=== PATIENT | female | born 1970 | race Caucasian/White ===

== ENCOUNTER 2016-09-23 09:48 | Inpatient (IN) | payer BC ==
[~2016-09-23 09:48] MED LIST: ACYCLOVIR400 MG PO; ALLOPURINOL300 MG PO; ATIVAN0.5 MG PO; BACTRIM DS1 TA1 PO; COMPAZINE10 M PO; DECADRON4 MG PO; LAXATIVE PO; LEVOTHYROXINE25 MC3 PO; MAGNESIUM400 MG PO; NORCO 10/325 TA1 TAB PO; PREDNISONE10 MG PO; PRILOSEC20 MG PO; TRETINOIN PO; TYLENOL325 M1 PO; VESANOID10 MG PO; WELLBUTRIN XL300 M1 PO; WELLBUTRIN75 M1 PO; ZOFRAN8 MG PO; [UNRECOGNIZED DRUG - OTHER]; [UNRECOGNIZED DRUG - OTHER] PO
[2016-09-23 10:20] LABS: BASO % 0.3 % (0-2); EOS % 2.1 % (0-7); EOSINOPHIL ABSOLUTE COUNT 0.1 tho/cmm (0.0-0.7); HCT-HEMATOCRIT 41.9 % (34.0-49.0); HGB-HEMOGLOBIN 14.3 gm/dl (12.0-15.5); LYMPH ABSOLUTE COUNT 1.2 tho/cmm (0.8-4.5); MCH (MEAN CORPUSCULAR HGB) 30.8 pg (28.0-32.0); MCHC MEAN CORPUSCULAR HGB CONC 34.1 % (32.0-36.0); MCV (MEAN CELL VOLUME) 90.1 fl (82.0-96.0); MEAN PLATELET VOLUME 9.5 cmc (9.4-12.4); MONO % 8.9 % (0-12); MONOCYTE ABSOLUTE COUNT 0.5 tho/cmm (0.0-1.2); NEUTROPHIL ABSOLUTE COUNT 3.9 tho/cmm (1.6-8.0); NEUTROPHIL-AUTOMATED 3.9 tho/cmm (1.6-8.0); NEUTROPHILS % 67.7 % (40-80); PLATELET COUNT 239 tho/cmm (150-450); RED BLOOD COUNT 4.65 mil/cmm (4.00-5.20); RED CELL DISTRIBUTION WIDTH 13.6 % (12.4-16.4); WHITE BLOOD COUNT 5.8 tho/cmm (4.0-10.0)
[2016-09-23 10:37] LABS: ALB/GLOB RATIO 1.1 (0.8-2.0); ALBUMIN 4.1 g/dl (3.5-5.0); ALKALINE PHOSPHATASE 76 U/L (33-138); ANION GAP 13 mmol/L (0-20); AST/SGOT 25 U/L (10-40); BILIRUBIN,TOTAL 0.5 mg/dl (0-1.5); BLOOD UREA NITROGEN 10 mg/dl (6-24); CALCIUM 9.3 mg/dl (8.5-10.5); CARBON DIOXIDE-VENOUS 25 mmol/L (22-32); CHLORIDE 108 mmol/l (96-110); GLUCOSE 88 mg/dL (70-110); POTASSIUM 4.3 mmol/L (3.7-5.1); SODIUM 142 mmol/L (135-145); eGFR VALUE FOR BLACK >90 mL/Min
[2016-09-23] MEDS ORDERED: PROBIOTIC1 EAC8 PO (10:37)
[2016-09-23] MEDS ORDERED: FIBER PO (10:39)
[2016-09-23] MEDS ORDERED: MULTI VITAMIN1 EAC2 PO (10:39)
[2016-09-23 10:40] LABS: ALT/SGPT 34 U/L (12-78)
[2016-09-23] MEDS ORDERED: DOCUSATE SODIU250 M1 PO (10:40)
[2016-09-24 05:41] LABS: BASO % 0.1 % (0-2); EOS % 0.2 % (0-7); HCT-HEMATOCRIT 35.5 % (34.0-49.0); HGB-HEMOGLOBIN 11.7 gm/dl (12.0-15.5); IMMATURE GRANULOCYTES ABSOLUTE 0.01 tho/cmm (0-0.03); IMMATURE GRANULOCYTES PERCENT 0.1 % (0-0.3); LYMPH % 11.9 % (20-45); LYMPH ABSOLUTE COUNT 1.3 tho/cmm (0.8-4.5); MCH (MEAN CORPUSCULAR HGB) 29.9 pg (28.0-32.0); MCV (MEAN CELL VOLUME) 90.8 fl (82.0-96.0); MEAN PLATELET VOLUME 9.6 cmc (9.4-12.4); MONO % 9.7 % (0-12); MONOCYTE ABSOLUTE COUNT 1.1 tho/cmm (0.0-1.2); NEUTROPHIL ABSOLUTE COUNT 8.5 tho/cmm (1.6-8.0); NEUTROPHIL-AUTOMATED 8.5 tho/cmm (1.6-8.0); PLATELET COUNT 240 tho/cmm (150-450); RED BLOOD COUNT 3.91 mil/cmm (4.00-5.20); RED CELL DISTRIBUTION WIDTH 13.6 % (12.4-16.4)
[2016-09-24 05:44] LABS: WHITE BLOOD COUNT 10.9 tho/cmm (4.0-10.0)
[2016-09-24 06:02] LABS: ALBUMIN 3.1 g/dl (3.5-5.0); ALKALINE PHOSPHATASE 58 U/L (33-138); ALT/SGPT 22 U/L (12-78); ANION GAP 11 mmol/L (0-20); AST/SGOT 17 U/L (10-40); BILIRUBIN,TOTAL 0.5 mg/dl (0-1.5); BLOOD UREA NITROGEN 9 mg/dl (6-24); CALCIUM 8.3 mg/dl (8.5-10.5); CARBON DIOXIDE-VENOUS 25 mmol/L (22-32); CHLORIDE 106 mmol/l (96-110); CREATININE 0.69 mg/dl (0.50-1.10); GLUCOSE 88 mg/dL (70-110); POTASSIUM 4.2 mmol/L (3.7-5.1); SODIUM 138 mmol/L (135-145); eGFR VALUE FOR BLACK >90 mL/Min
--- NOTE | 2016-09-25 19:20 | NUR ---
VIRTUAL CARE NOTE: ASSESSMENT DEFERRED. PT. SLEEPING.
[2016-09-26 05:51] LABS: HGB-HEMOGLOBIN 10.8 gm/dl (12.0-15.5); PLATELET COUNT 201 tho/cmm (150-450)
--- NOTE | 2016-09-26 15:37 | NUR ---
VIRTUAL CARE NOTE: PT RESTING ON BED, STATES HAS BEEN DOING GOOD TODAY AND JUST FEEL LITTLE NAUSEOUS RECENTLY, PT WOULD LIKE NAUSEA TX, VN PAGED PRIMARY NURSE FOR ANTIMETICS. PT STATES TOLERATES FULL LIQ AT LUNCH, PASSING SOME GAS BUT DENIES BMS YET. ENCOURAGE AMBULATION, POST-OP CARE REINFORCED. PT DENIES ANY FURTHER NEEDS OR QUESTIONS.
[2016-09-27] MEDS ORDERED: NORCO 5-325 TA1 EACH PO (16:27)
[2016-09-27] MEDS ORDERED: STOP HOME MEDICATION (16:29)
--- NOTE | 2016-09-27 18:30 | NUR ---
VIRTUAL CARE NOTE: PT DRESSED READY FOR DISCHARGE, IN THE ROOM. INFORMATON GIVEN TO PT, QUESTIONS ANSWERES. PT DENIES FURTHER QUESTIONS OR CONCENRS. INFORMED FLOOR NURSE DISCHARGE TEACHING DONE.
[2016-10-09] MEDS ORDERED: AUGMENTIN 875-1 EAC2 PO (14:57)
== END 2016-09-27 18:50 | DRG 331 ==
LOC: SHSB 09:48 → ORW 13:02 → PACU 15:24 → 5WD 16:40
PROVIDERS: ADMIT Surgery
PROC: 0DBN0ZZ Excision of Sigmoid Colon, Open Approach (ICD-10-PCS; principal; 2016-09-23)
PROC: 0DJD4ZZ Inspection of Lower Intestinal Tract, Percutaneous Endoscopic Approach (ICD-10-PCS; 2016-09-23)
DX: C18.7 Malignant neoplasm of sigmoid colon (principal); Z53.31 Laparoscopic surgical procedure converted to open procedure
CPT/HCPCS: J0131; J1170; J1335; J1650; J2270; J2405; J2550; J2765; J3010; J7030

== ENCOUNTER 2016-10-13 10:00 | Day surgery (SDC) | payer BC ==
[~2016-10-13 10:00] MED LIST changes: +AUGMENTIN 875-1 EAC2 PO; +DOCUSATE SODIU250 M1 PO; +FIBER PO; +MULTI VITAMIN1 EAC2 PO; +NORCO 5-325 TA1 EACH PO; +PROBIOTIC1 EAC8 PO; +STOP HOME MEDICATION
== END 2016-10-13 14:05 ==
LOC: SRG 10:00 → SHSC 10:01 → ORW 12:06
PROC: 05H633Z Insertion of Infusion Device into Left Subclavian Vein, Percutaneous Approach (ICD-10-PCS; principal; 2016-10-13)
PROC: B517YZA Fluoroscopy of Left Subclavian Vein using Other Contrast, Guidance (ICD-10-PCS; 2016-10-13)
DX: C18.7 Malignant neoplasm of sigmoid colon (principal); E03.9 Hypothyroidism, unspecified; F41.9 Anxiety disorder, unspecified; F32.9 Major depressive disorder, single episode, unspecified; Z79.899 Other long term (current) drug therapy; Z87.891 Personal history of nicotine dependence; Z98.890 Other specified postprocedural states; Z79.891 Long term (current) use of opiate analgesic
CPT/HCPCS: C1788; J0690; J1642